=== PATIENT | male | born 1965 | race Caucasian/White ===

== ENCOUNTER 2017-10-04 20:30 | Emergency (ER) | payer OTHER ==
[~2017-10-04] VITALS: Ht 170.1 cm; Wt 81.6 kg
[2017-10-04 21:06] LABS: BILIRUBIN NEGATIVE (NEGATIVE); BLOOD 1+ (NEGATIVE); CLARITY SL CLOUDY (CLEAR); COLOR YELLOW (YELLOW); GLUCOSE 3+ (NEGATIVE); KETONE 1+ (NEGATIVE); LEUKO ESTERASE NEGATIVE (NEGATIVE); NITRITE NEGATIVE (NEGATIVE)
[2017-10-04 21:11] LABS: BACTERIA TRACE
[2017-10-04 21:12] LABS: EPITHELIAL CELLS 0-2; MUCOUS TRACE; RBC 31-40 rbc/hpf (0-2)
[2017-10-04 21:17] LABS: HEMOGLOBIN 11.5 g/dl (14.0-18.0); MEAN CELL VOLUME 88.5 fl (80.0-94.0); MEAN CORPUSCULAR HGB 29.9 pg (27.0-31.0); MEAN CORPUSCULAR HGB CONC 33.8 g/dl (33.0-37.0); MEAN PLATELET VOLUME 8.7 fl (9.6-12.3); PLATELET COUNT AUTOMATED 212 10*3/uL (130-400); RED BLOOD COUNT 3.84 10*6/uL (4.50-5.90); RED CELL DISTRI WIDTH 11.9 % (0-14.5); WHITE BLOOD COUNT 7.7 10*3/uL (4.8-10.8)
[2017-10-04 21:30] LABS: ACT PARTIAL THROMBO TIME 22.7 SECONDS (20.8-31.5); INTERNATIONAL NORM RATIO 0.9 (2.0-3.5)
[2017-10-04 21:32] LABS: BUN 14 mg/dl (7-24); CHLORIDE 100 mmol/L (98-107); POTASSIUM 4.2 mmol/L (3.5-5.1); SGOT/AST 14 IU/L (3-35); SGPT/ALT 37 U/L (12-78); SODIUM 135 mmol/L (136-145); TOTAL PROTEIN 7.3 gm/dL (6.4-8.2)
[2017-10-04 21:33] LABS: ALKALINE PHOSPHATASE 145 U/L (45-117)
[2017-10-04 21:39] LABS: ATYPICAL LYMPHS 3 % (0-0); BASOPHILS 1 % (0-1); TOTAL CELLS COUNTED 100 #CELLS
[2017-10-04 21:40] LABS: PLATELET SUFFICIENCY NORMAL (NORMAL)
[2017-10-04] MEDS ORDERED: Motrin,Rufen800 MG PO (22:50)
[2017-10-04] MEDS ORDERED: DOXYCYCLINE HY100 M3 PO (22:50)
[2017-10-08 12:07] LABS: IGG P18 AB Absent (.); IGG P23 AB Absent (.); IGG P28 AB Absent (.); IGG P30 AB Absent (.); IGG P39 AB Absent (.); IGG P41 AB Present (.); IGG P45 AB Absent (.); IGG P58 AB Absent (.); IGG P63 AB Present (.); IGG P66 AB Absent (.); IGM P23 AB Present (.); IGM P39 AB Present (.); IGM P41 AB Present (.); LYME IGG WB INTERPRETATION Negative (.); LYME IGM WB INTERPRETATION Positive (.)
[2017-10-08 12:17] LABS: LYME REFLEX CHARGE CHG
== END 2017-10-04 22:47 | disposition home or self-care (01) ==
LOC: ED 20:30
PROVIDERS: Emergency Medicine Emergency Medical Services
DX: R50.9 Fever, unspecified (principal); M25.50 Pain in unspecified joint

== ENCOUNTER 2020-04-08 10:51 | Inpatient (IN) | payer OTHER ==
[2020-04-08] VITALS (8 sets, daily range): BP systolic 105–176; BP diastolic 62–96
[~2020-04-08] VITALS: Ht 172.7 cm; Wt 84.5 kg
[~2020-04-08 10:51] MED LIST: DOXYCYCLINE HY100 M3 PO; Motrin,Rufen800 MG PO
[2020-04-08 11:31] LABS: BASO % 0.3 % (0.0-1.0); EOS # 0.1 10*3/uL (0.0-0.4); EOS % 1.8 % (1.0-4.0); HEMATOCRIT 39.5 % (42.0-52.0); LYMPH # 1.3 10*3/uL (1.3-4.4); LYMPH % 19.5 % (27.0-41.0); MEAN CELL VOLUME 88.4 fl (80.0-94.0); MEAN CORPUSCULAR HGB 29.3 pg (27.0-31.0); MEAN CORPUSCULAR HGB CONC 33.2 g/dl (33.0-37.0); MEAN PLATELET VOLUME 8.9 fl (9.6-12.3); MONO # 0.5 10*3/uL (0.1-1.0); NEUT # 4.8 10*3/uL (2.3-7.9); NEUT % 71.3 % (47.0-73.0); PLATELET COUNT AUTOMATED 218 10*3/uL (130-400); RED BLOOD COUNT 4.47 10*6/uL (4.50-5.90); RED CELL DISTRI WIDTH 11.7 % (0-14.5); WHITE BLOOD COUNT 6.7 10*3/uL (4.8-10.8)
[2020-04-08 11:47] LABS: ALBUMIN 3.5 gm/dl (3.1-4.5); ALKALINE PHOSPHATASE 80 U/L (45-117); BUN 29 mg/dl (7-24); CHLORIDE 104 mmol/L (98-107); CREATININE 1.32 mg/dL (0.70-1.30); POTASSIUM 5.9 mmol/L (3.5-5.1); SGOT/AST 18 IU/L (3-35); SGPT/ALT 25 U/L (12-78); SODIUM 136 mmol/L (136-145); TOTAL PROTEIN 7.6 gm/dL (6.4-8.2)
--- NOTE | 2020-04-08 12:24 | NUR ---
PATIENT RESTING AT THIS TIME. IN POSITION OF COMFORT. CALL LIGHT IN REACH. WATCHING TELEVISION. NO COMPLAINTS AT THIS TIME. WILL CONTINUE TO MONITOR.
--- NOTE | 2020-04-08 12:43 | NUR ---
PATIENT RESTING AT THIS TIME. CALL LIGHT IN REACH. WILL CONTINUE TO MONITOR PT.
--- NOTE | 2020-04-08 13:21 | NUR ---
RESIDENT IN ROOM WITH PATIENT AT THIS TIME.
--- NOTE | 2020-04-08 13:54 | NUR ---
PATIENT RESTING AT THIS TIME. IN POSITION OF COMFORT. CALL LIGHT IN REACH. WILL CONTINUE TO MONITOR PT. NO COMPLAINTS AT THIS TIME.
--- NOTE | 2020-04-08 14:12 | NUR ---
THE [facility] WAS CONTACTED REGARDING THE PATIENT AND AN UPDATED MEDICATION LIST. [facility] STATES THAT THEY WILL FAX IT TO THE HOSPITAL.
--- NOTE | 2020-04-08 15:28 | NUR ---
A CONSULT WAS MADE TO DR AMBER ROLDAN AT [phone]. I SPOKE TO ERMA AND SHE STATES THAT SHE IS GOING TO GET AHOLD OF DR ROLDAN.
[2020-04-08] MEDS ORDERED: CARVEDILOL3.125 MG PO (15:58)
[2020-04-08] MEDS ORDERED: CLOPIDOGREL75 MG PO (15:58)
[2020-04-08] MEDS ORDERED: GLIPIZIDE5 MG PO (15:59)
[2020-04-08] MEDS ORDERED: LOSARTAN POTASS50 M1 PO (16:00)
[2020-04-08] MEDS ORDERED: OMEPRAZOLE20 M2 PO (16:01)
[2020-04-08] MEDS ORDERED: ALDACTONE25 M1 PO (16:01)
--- NOTE | 2020-04-08 16:52 | NUR ---
THERE HAS BEEN NO RETURNED PHONE CALL FROM DR. ROLDAN
--- NOTE | 2020-04-08 16:54 | NUR ---
DINNER TRABobby CALLED AND ORDERED FOR THE PATIENT.
[2020-04-08 17:33] LABS: BUN 27 mg/dl (7-24); CHLORIDE 108 mmol/L (98-107); CREATININE 1.19 mg/dL (0.70-1.30); SODIUM 138 mmol/L (136-145)
[2020-04-08 17:35] LABS: POTASSIUM 4.6 mmol/L (3.5-5.1)
--- NOTE | 2020-04-08 17:50 | NUR ---
I CONTACTED DR MARQUEZ AND NORIFIED HIM OF THE PATIENTS ELEVATED TROPONIN. DR MARQUEZ IS AWARE.
--- NOTE | 2020-04-08 18:00 | NUR ---
PATIENT IS RESTING AT THIS TIME. PROVIDED A DINNER TRAY.
--- NOTE | 2020-04-08 18:50 | NUR ---
PATIENT AMBULATORY TO BATHROOM.
--- NOTE | 2020-04-08 19:43 | NUR ---
PATIENT RESTING AT THIS TIME. WILL CONTINUE TO MONITOR PT. IN POSITION OF COMFORT.
--- NOTE | 2020-04-08 21:37 | NUR ---
PATIENT RESTING AT THIS TIME. IN POSITION OF COMFORT AT THIS TIME. CALL LIGHT IN REACH. WATCHING TELEVISION. WILL CONTINUE TO MONITOR PT.
--- NOTE | 2020-04-08 23:19 | NUR ---
PATIENT RESTING AT THIS TIME. IN POSITION OF COMFORT. WATCHING TELEVISION. CALL LIGHT IN REACH. WILL CONTINUE TO MONITOR. PATIENT HAS NO COMPLAINTS AT THIS TIME.
[2020-04-09 00:04] VITALS: BP 103/60
--- NOTE | 2020-04-09 01:56 | NUR ---
PATIENT RESTING QUIETLY IN BED AT THIS TIME. RESPIRATIONS EASY, NON-LABORED. RN WILL CONTINUE TO MONITOR.
[2020-04-09 02:17] VITALS: BP 117/61
[2020-04-09 03:40] VITALS: BP 136/87
--- NOTE | 2020-04-09 03:40 | NUR ---
A 54, admitted to 5E, under the services of ROMERO Mckeon DO with a diagnosis of ELEVATED TROPONIN. Chief complaint is CHEST PAIN. Patient arrived via stretcher from ER. Monitor applied. Initial assessment completed. Vital signs taken and recorded. ROMERO MCKEON DO notified of admission to the unit. Orders received. See assessment for past medical history, medications and allergies. Patient and/or family oriented to unit. visitation policy reviewed. Clothing/patient valuable form completed. GABRIELLE NARANJO
--- NOTE | 2020-04-09 04:31 | NUR ---
PATIENT SITUATED IN ROOM. ICE WATER, PHONE COLLEGE ATHLETIC DIRECTOR, AND BOX LUNCH PROVIDED. CALL LIGHT IS WITHIN REACH. WILL CONTINUE TO MONITOR.
--- NOTE | 2020-04-09 06:25 | NUR ---
CHART CHECK COMPLETE.
[2020-04-09 06:58] LABS: BASO % 0.5 % (0.0-1.0); EOS # 0.2 10*3/uL (0.0-0.4); EOS % 3.4 % (1.0-4.0); HEMATOCRIT 35.8 % (42.0-52.0); LYMPH % 33.5 % (27.0-41.0); MEAN CELL VOLUME 90.4 fl (80.0-94.0); MEAN CORPUSCULAR HGB 29.8 pg (27.0-31.0); MEAN PLATELET VOLUME 9.3 fl (9.6-12.3); MONO # 0.6 10*3/uL (0.1-1.0); MONO % 10.1 % (3.0-9.0); NEUT # 3.1 10*3/uL (2.3-7.9); NEUT % 52.2 % (47.0-73.0); PLATELET COUNT AUTOMATED 198 10*3/uL (130-400); RED BLOOD COUNT 3.96 10*6/uL (4.50-5.90); RED CELL DISTRI WIDTH 11.9 % (0-14.5)
[2020-04-09 07:26] LABS: CREATININE 1.48 mg/dL (0.70-1.30); POTASSIUM 4.2 mmol/L (3.5-5.1)
--- NOTE | 2020-04-09 10:59 | NUR ---
Reproduction Order Processor in to talk to patient this a.m. in his Room. Patient states that he Lives with His Significant Other. There are No Steps in the Home Physician: DR SANDRA Pharmacy: [facility], [facility] [place] Home health services: N/A Patient's level of ADLs: INDEPENDENT Patient has working utilities: YES DME: NONE Follow-up physician's appointment after d/c:PER HOSPITALIST NURSE DIRECTOR Does patient want to access PORTAL?: DECLINES Discharge plan at this time is for Pt. to return home with no needs at this time. Pt. is independent and still Drives. VALERIE FARRELL LPN
[2020-04-09 12:00] VITALS: BP 124/69
[2020-04-09 16:00] VITALS: BP 128/66
--- NOTE | 2020-04-09 16:34 | NUR ---
[employer] 54, admitted to , under the services of ROMERO Mckeon DO with a diagnosis of BLE FRACTURES. Chief complaint is PAIN. Patient arrived via bed from ER. Monitor applied. Initial assessment completed. Vital signs taken and recorded. ROMERO MCKEON DO notified of admission to the unit. Orders received. See assessment for past medical history, medications and allergies. Patient and/or family oriented to unit. [facility] visitation policy reviewed. Clothing/patient valuable form completed. HANY DURAN
[2020-04-09 20:00] VITALS: BP 129/64
--- NOTE | 2020-04-09 22:47 | NUR ---
TYLENOL GIVE PER ORDER FOR HEADACHE RATED "2" SEE MAR.
[2020-04-10] VITALS: BP 109/59
[2020-04-10 06:51] LABS: BASO % 0.5 % (0.0-1.0); EOS # 0.2 10*3/uL (0.0-0.4); EOS % 3.6 % (1.0-4.0); HEMATOCRIT 37.6 % (42.0-52.0); LYMPH % 32.8 % (27.0-41.0); MEAN CELL VOLUME 89.7 fl (80.0-94.0); MEAN CORPUSCULAR HGB 29.8 pg (27.0-31.0); MEAN CORPUSCULAR HGB CONC 33.2 g/dl (33.0-37.0); MEAN PLATELET VOLUME 9.1 fl (9.6-12.3); MONO # 0.6 10*3/uL (0.1-1.0); MONO % 10.2 % (3.0-9.0); NEUT # 3.3 10*3/uL (2.3-7.9); NEUT % 52.7 % (47.0-73.0); PLATELET COUNT AUTOMATED 214 10*3/uL (130-400); RED BLOOD COUNT 4.19 10*6/uL (4.50-5.90); RED CELL DISTRI WIDTH 11.9 % (0-14.5); WHITE BLOOD COUNT 6.2 10*3/uL (4.8-10.8)
[2020-04-10 07:04] LABS: BUN 29 mg/dl (7-24); CHLORIDE 105 mmol/L (98-107); POTASSIUM 4.4 mmol/L (3.5-5.1); SODIUM 136 mmol/L (136-145)
[2020-04-10 08:00] VITALS: BP 141/86
--- NOTE | 2020-04-10 11:11 | NUR ---
INFORMED SIGNED CONSENT OBTAINED FOR LEXISCAN STRESS TEST WITH DR ROLDAN. RESTING EKG NSR WITH PVC HR 75 BP 108/70. PULSE OX 93% LUNGS CLEAR. PT COMPLETED ONE MINUTE OF A LEXISCAN STRESS TEST WITH PT RECEIVING LEXISCAN 0.4MG IV OVER 10 SECONDS. PT C/O DIZZINESS AND NAUSEA WITH INJECTION, THAT RESOLVED. LAST RECOVERY HR OF 84 BP 102/66. PT IN STABLE CONDITION, AWAITING NUCLEAR IMAGES.
[2020-04-10 12:00] VITALS: BP 147/84
[2020-04-10] MEDS ORDERED: FUROSEMIDE40 MG PO (14:26)
[2020-04-10] MEDS ORDERED: IMDUR SA30 MG PO (14:26)
[2020-04-10] MEDS ORDERED: ATORVASTATIN CA40 M1 PO ×2 (14:26)
[2020-04-10] MEDS ORDERED: ASPIRIN ADULT L81 M2 PO (14:26)
--- NOTE | 2020-04-10 16:44 | NUR ---
PT HAS BEEN DISCHARGED AT THIS TIME. HE WILL BE LEAVING WITH A FAMILY FRIEND.
== END 2020-04-10 20:59 | disposition home or self-care (01) | DRG 280 ==
LOC: ED 10:51 → EDHOLD 12:59 → 5E 04-09 03:19
PROVIDERS: Emergency Medicine; Hospitalist; Student in an Organized Health Care Education/Training Program; ADMIT Family Medicine; ATTEND Family Medicine
PROC: 4A02XM4 Measurement of Cardiac Total Activity, External Approach (ICD-10-PCS; principal; 2020-04-10)
PROC: 3E073KZ Introduction of Other Diagnostic Substance into Coronary Artery, Percutaneous Approach (ICD-10-PCS; 2020-04-10)
DX: I21.4 Non-ST elevation (NSTEMI) myocardial infarction (principal); N17.0 Acute kidney failure with tubular necrosis; I50.22 Chronic systolic (congestive) heart failure; E87.5 Hyperkalemia; E11.65 Type 2 diabetes mellitus with hyperglycemia; I25.10 Atherosclerotic heart disease of native coronary artery without angina pectoris; E78.5 Hyperlipidemia, unspecified; E66.3 Overweight; D64.9 Anemia, unspecified; I25.5 Ischemic cardiomyopathy; I11.0 Hypertensive heart disease with heart failure; I25.2 Old myocardial infarction; Z95.5 Presence of coronary angioplasty implant and graft; Z87.891 Personal history of nicotine dependence; Z79.899 Other long term (current) drug therapy; Z68.29 Body mass index [BMI] 29.0-29.9, adult

== ENCOUNTER 2020-04-13 05:30 | Inpatient (IN) | payer OTHER ==
[2020-04-13] VITALS (7 sets, daily range): BP systolic 131–195; BP diastolic 77–108
[~2020-04-13] VITALS: Ht 170.1 cm; Wt 81.7 kg
[~2020-04-13 05:30] MED LIST changes: +ALDACTONE25 M1 PO; +ASPIRIN ADULT L81 M2 PO; +ATORVASTATIN CA40 M1 PO; +CARVEDILOL3.125 MG PO; +CLOPIDOGREL75 MG PO; +FUROSEMIDE40 MG PO; +GLIPIZIDE5 MG PO; +IMDUR SA30 MG PO; +LOSARTAN POTASS50 M1 PO; +OMEPRAZOLE20 M2 PO
[2020-04-13 06:03] LABS: BASO % 0.4 % (0.0-1.0); EOS # 0.2 10*3/uL (0.0-0.4); EOS % 2.3 % (1.0-4.0); HEMATOCRIT 38.1 % (42.0-52.0); LYMPH # 1.5 10*3/uL (1.3-4.4); LYMPH % 19.6 % (27.0-41.0); MEAN CORPUSCULAR HGB 29.4 pg (27.0-31.0); MEAN CORPUSCULAR HGB CONC 33.1 g/dl (33.0-37.0); MEAN PLATELET VOLUME 9.1 fl (9.6-12.3); MONO # 0.7 10*3/uL (0.1-1.0); MONO % 8.6 % (3.0-9.0); NEUT # 5.3 10*3/uL (2.3-7.9); NEUT % 68.8 % (47.0-73.0); PLATELET COUNT AUTOMATED 230 10*3/uL (130-400); RED BLOOD COUNT 4.28 10*6/uL (4.50-5.90); RED CELL DISTRI WIDTH 11.9 % (0-14.5); WHITE BLOOD COUNT 7.7 10*3/uL (4.8-10.8)
[2020-04-13 06:13] LABS: ALBUMIN 3.7 gm/dl (3.1-4.5); ALKALINE PHOSPHATASE 74 U/L (45-117); BUN 36 mg/dl (7-24); CHLORIDE 106 mmol/L (98-107); CREATININE 1.33 mg/dL (0.70-1.30); POTASSIUM 4.4 mmol/L (3.5-5.1); SGOT/AST 28 IU/L (3-35); SGPT/ALT 45 U/L (12-78); SODIUM 136 mmol/L (136-145); TOTAL PROTEIN 7.6 gm/dL (6.4-8.2)
[2020-04-13 06:26] LABS: TROPONIN I 0.133 ng/ml (<0.045)
[2020-04-13 06:49] LABS: CKMB 3.3 ng/ml (0.5-3.6)
--- NOTE | 2020-04-13 07:09 | NUR ---
REPORT RECEIVED FROM EMILIANO ARIZA RN
[2020-04-13 11:31] LABS: ACT PARTIAL THROMBO TIME 25.7 SECONDS (20.0-32.1); INTERNATIONAL NORM RATIO 0.9 (2.0-3.5)
--- NOTE | 2020-04-13 17:11 | NUR ---
ORDERED PATIENT DINNER TRAY.
[2020-04-14 06:40] LABS: BASO % 0.4 % (0.0-1.0); EOS # 0.2 10*3/uL (0.0-0.4); HEMATOCRIT 35.4 % (42.0-52.0); LYMPH % 34.3 % (27.0-41.0); MEAN CELL VOLUME 90.3 fl (80.0-94.0); MEAN CORPUSCULAR HGB 29.3 pg (27.0-31.0); MEAN CORPUSCULAR HGB CONC 32.5 g/dl (33.0-37.0); MEAN PLATELET VOLUME 9.5 fl (9.6-12.3); MONO # 0.7 10*3/uL (0.1-1.0); NEUT # 2.9 10*3/uL (2.3-7.9); NEUT % 50.1 % (47.0-73.0); PLATELET COUNT AUTOMATED 221 10*3/uL (130-400); RED BLOOD COUNT 3.92 10*6/uL (4.50-5.90); RED CELL DISTRI WIDTH 12.1 % (0-14.5); WHITE BLOOD COUNT 5.7 10*3/uL (4.8-10.8)
[2020-04-14 06:41] VITALS: BP 121/65
[2020-04-14 07:00] LABS: ALBUMIN 3.3 gm/dl (3.1-4.5); POTASSIUM 3.9 mmol/L (3.5-5.1); TOTAL PROTEIN 6.4 gm/dL (6.4-8.2)
[2020-04-14 07:09] LABS: ACT PARTIAL THROMBO TIME 25.4 SECONDS (20.0-32.1)
--- NOTE | 2020-04-14 12:45 | NUR ---
A 54, admitted to 5E, under the services of REGULO Hoang DO with a diagnosis of NSTEMI. Chief complaint is CHEST PAIN. Patient arrived via wheel chair from ER. Monitor applied. Initial assessment completed. Vital signs taken and recorded. REGULO HOANG DO notified of admission to the unit. Orders received. See assessment for past medical history, medications and allergies. Patient and/or family oriented to unit. [address] visitation policy reviewed. Clothing/patient valuable form completed. SANTOS HERRERA
[2020-04-14 13:00] VITALS: BP 134/74
[2020-04-14 16:00] VITALS: BP 104/64
[2020-04-14 20:00] VITALS: BP 120/75
--- NOTE | 2020-04-14 22:10 | NUR ---
RESTORIL GIVEN PER ORDER FOR COMPLAINTS OF INSOMNIA. WILL MONITOR.
--- NOTE | 2020-04-14 23:10 | NUR ---
RESTORIL EFFECTIVE, PATIENT ASLEEP AT THIS TIME.
[2020-04-15] VITALS: BP 114/70
[2020-04-15 06:30] LABS: BASO % 0.5 % (0.0-1.0); EOS # 0.2 10*3/uL (0.0-0.4); EOS % 3.4 % (1.0-4.0); HEMATOCRIT 36.8 % (42.0-52.0); LYMPH # 2.2 10*3/uL (1.3-4.4); LYMPH % 35.7 % (27.0-41.0); MEAN CELL VOLUME 89.3 fl (80.0-94.0); MEAN CORPUSCULAR HGB 29.4 pg (27.0-31.0); MEAN CORPUSCULAR HGB CONC 32.9 g/dl (33.0-37.0); MEAN PLATELET VOLUME 9.5 fl (9.6-12.3); MONO # 0.6 10*3/uL (0.1-1.0); MONO % 9.3 % (3.0-9.0); NEUT # 3.2 10*3/uL (2.3-7.9); NEUT % 50.9 % (47.0-73.0); PLATELET COUNT AUTOMATED 229 10*3/uL (130-400); RED BLOOD COUNT 4.12 10*6/uL (4.50-5.90); RED CELL DISTRI WIDTH 11.9 % (0-14.5); WHITE BLOOD COUNT 6.2 10*3/uL (4.8-10.8)
[2020-04-15 06:57] LABS: ALBUMIN 3.2 gm/dl (3.1-4.5); CREATININE 1.5 mg/dL (0.70-1.30); TOTAL PROTEIN 6.7 gm/dL (6.4-8.2)
[2020-04-15 06:58] LABS: POTASSIUM 4.6 mmol/L (3.5-5.1)
[2020-04-15 08:00] VITALS: BP 127/54
--- NOTE | 2020-04-15 08:30 | NUR ---
Patient resting quietly with no c/o discomfort. Respirations easy and regular. Vital signs stable. No overt distress. NITISH MAZARIEGOS R
[2020-04-15] MEDS ORDERED: ATORVASTATIN CA40 M1 PO (10:37)
[2020-04-15 12:00] VITALS: BP 107/59
[2020-04-15 16:00] VITALS: BP 135/77
--- NOTE | 2020-04-15 16:26 | NUR ---
Pt. to Discharge to [place] for Heart Cath. No Home Needs at this time. [facility] [place] Pt. is 30 Day Readmit for Same Diagnosis.
--- NOTE | 2020-04-15 17:50 | NUR ---
Patient resting quietly with no c/o discomfort. Respirations easy and regular. Vital signs stable. No overt distress. NITISH MAZARIEGOS R
[2020-04-15 20:00] VITALS: BP 121/72
--- NOTE | 2020-04-15 22:05 | NUR ---
MEDICATED WITH RESTORIL PER PRN ORDER FOR C/O INSOMNIA.
[2020-04-16] VITALS: BP 121/67
--- NOTE | 2020-04-16 01:30 | NUR ---
PT WOKE UP SAYING HE HAD TREMORS AND NOT FEELING RIGHT. VSS STABLE, SKIN WARM AND DRY. PT SAYS HEART FEELS LIKE POUNDING HARD. HR 70'S AND REGULAR. DR HERNDON CALLED AND ORDER FOR ATIVAN 0.5MG PO X1 NOW.
--- NOTE | 2020-04-16 02:30 | NUR ---
CHECKED ON PT. PT STATES HE STILL FEELS HIS HEART POUNDING BUT NOT BAD AND IS FEELING BETTER. VSS GOOD, HRR AND IN THE 60-70'S. SKIN WARM AND DRY. RESP NONLABORED. NO ACUTE DISTRESS NOTED.
[2020-04-16 07:08] LABS: BUN 38 mg/dl (7-24); CHLORIDE 105 mmol/L (98-107); POTASSIUM 4.6 mmol/L (3.5-5.1); SODIUM 136 mmol/L (136-145)
--- NOTE | 2020-04-16 07:30 | NUR ---
Patient resting quietly with no c/o discomfort. Respirations easy and regular. Denies chest pain at this time. Vital signs stable. No overt distress. NITISH MAZARIEGOS R
--- NOTE | 2020-04-16 07:41 | NUR ---
REPORT CALLED TO LABORER BRUSH CLEARING.
--- NOTE | 2020-04-16 07:46 | NUR ---
MEDS GIVEN PER ORDERS FROM HUMAN RELATIONS TEACHER
--- NOTE | 2020-04-16 08:38 | NUR ---
Discharge instructions reviewed with patient/family. Patient receptive and verbalizes understanding. Follow-up care arranged. Written instructions given to patient/family. NITISH MAZARIEGOS
== END 2020-04-16 08:35 | disposition other institution (70) | DRG 280 ==
LOC: ED 05:30 → EDHOLD 10:36 → 5E 04-14 12:12
PROVIDERS: Emergency Medicine; Internal Medicine; Internal Medicine Cardiovascular Disease; ADMIT Internal Medicine; ATTEND Internal Medicine
DX: I21.4 Non-ST elevation (NSTEMI) myocardial infarction (principal); N17.0 Acute kidney failure with tubular necrosis; I16.1 Hypertensive emergency; I50.22 Chronic systolic (congestive) heart failure; D64.9 Anemia, unspecified; E11.65 Type 2 diabetes mellitus with hyperglycemia; E78.5 Hyperlipidemia, unspecified; E66.3 Overweight; E83.41 Hypermagnesemia; F41.9 Anxiety disorder, unspecified; I25.10 Atherosclerotic heart disease of native coronary artery without angina pectoris; Z20.828 Contact with and (suspected) exposure to other viral communicable diseases; E83.39 Other disorders of phosphorus metabolism; I11.0 Hypertensive heart disease with heart failure; I25.5 Ischemic cardiomyopathy; Z87.891 Personal history of nicotine dependence; Z95.5 Presence of coronary angioplasty implant and graft; Z83.3 Family history of diabetes mellitus; Z80.42 Family history of malignant neoplasm of prostate; Z79.82 Long term (current) use of aspirin; Z79.899 Other long term (current) drug therapy; Z79.02 Long term (current) use of antithrombotics/antiplatelets; Z68.28 Body mass index [BMI] 28.0-28.9, adult

== ENCOUNTER 2020-09-25 05:09 | Emergency (ER) | payer OTHER ==
[~2020-09-25] VITALS: Ht 167.6 cm; Wt 111.1 kg
[2020-09-25 05:52] LABS: BASO % 0.5 % (0.0-1.0); EOS # 0.3 10*3/uL (0.0-0.4); EOS % 3.6 % (1.0-4.0); HEMATOCRIT 35.6 % (42.0-52.0); LYMPH # 1.5 10*3/uL (1.3-4.4); MEAN CORPUSCULAR HGB 30.7 pg (27.0-31.0); MEAN CORPUSCULAR HGB CONC 33.7 g/dl (33.0-37.0); MEAN PLATELET VOLUME 9.3 fl (9.6-12.3); MONO # 0.7 10*3/uL (0.1-1.0); MONO % 8.2 % (3.0-9.0); NEUT # 6.1 10*3/uL (2.3-7.9); NEUT % 70.5 % (47.0-73.0); PLATELET COUNT AUTOMATED 229 10*3/uL (130-400); RED BLOOD COUNT 3.91 10*6/uL (4.50-5.90); WHITE BLOOD COUNT 8.7 10*3/uL (4.8-10.8)
[2020-09-25 05:53] LABS: ALBUMIN 3.5 gm/dl (3.1-4.5); ALKALINE PHOSPHATASE 71 U/L (45-117); BUN 33 mg/dl (7-24); CHLORIDE 105 mmol/L (98-107); CREATININE 1.66 mg/dL (0.70-1.30); POTASSIUM 4.5 mmol/L (3.5-5.1); SGOT/AST 15 IU/L (3-35); SGPT/ALT 24 U/L (12-78); SODIUM 135 mmol/L (136-145); TOTAL PROTEIN 7.5 gm/dL (6.4-8.2)
[2020-09-25 05:57] LABS: TROPONIN I < 0.015 ng/ml (<0.045)
[2020-09-25] MEDS ORDERED: PRALUENT P75 MG/1 ML SQ (05:59)
== END 2020-09-25 12:23 | disposition home or self-care (01) ==
LOC: ED 05:09
PROVIDERS: Internal Medicine
DX: R07.89 Other chest pain (principal); Z79.899 Other long term (current) drug therapy; Z95.818 Presence of other cardiac implants and grafts

== ENCOUNTER 2021-03-14 05:27 | Emergency (ER) | payer OTHER ==
[~2021-03-14] VITALS: Ht 170.1 cm; Wt 85.7 kg
[~2021-03-14 05:27] MED LIST changes: +PRALUENT P75 MG/1 ML SQ
[2021-03-14] MEDS ORDERED: PREDNISONE20 M1 PO (06:08)
== END 2021-03-14 06:29 | disposition home or self-care (01) ==
LOC: ED 05:27
DX: J12.9 Viral pneumonia, unspecified (principal); Z79.899 Other long term (current) drug therapy; Z87.891 Personal history of nicotine dependence

== ENCOUNTER 2021-11-17 01:34 | Emergency (ER) | payer OTHER ==
[~2021-11-17] VITALS: Ht 177.8 cm; Wt 90.7 kg
[~2021-11-17 01:34] MED LIST changes: +PREDNISONE20 M1 PO
[2021-11-17] MEDS ORDERED: CLINDAMYCIN HC300 MG PO (01:55)
[2021-11-17] MEDS ORDERED: HYDROCODONE-AC1 EAC1 PO (01:55)
== END 2021-11-17 02:03 | disposition home or self-care (01) ==
LOC: ED 01:34
DX: S02.5XXA Fracture of tooth (traumatic), initial encounter for closed fracture (principal); Z79.899 Other long term (current) drug therapy; Z95.5 Presence of coronary angioplasty implant and graft; Z87.891 Personal history of nicotine dependence; X58.XXXA Exposure to other specified factors, initial encounter; Y93.89 Activity, other specified; Y92.89 Other specified places as the place of occurrence of the external cause; Y99.8 Other external cause status

== ENCOUNTER 2022-04-11 13:20 | Emergency (ER) | payer OTHER ==
[~2022-04-11] VITALS: Ht 170.1 cm; Wt 77.6 kg
[~2022-04-11 13:20] MED LIST changes: +CLINDAMYCIN HC300 MG PO; +HYDROCODONE-AC1 EAC1 PO
[2022-04-11 14:08] LABS: BASO # 0.1 10*3/uL (0.0-0.1); BASO % 0.9 % (0.0-1.0); EOS # 0.2 10*3/uL (0.0-0.4); EOS % 4.2 % (1.0-4.0); HEMATOCRIT 42.1 % (42.0-52.0); LYMPH # 1.1 10*3/uL (1.3-4.4); LYMPH % 19.3 % (27.0-41.0); MEAN CELL VOLUME 88.1 fl (80.0-94.0); MEAN CORPUSCULAR HGB 29.9 pg (27.0-31.0); MEAN PLATELET VOLUME 9.2 fl (9.6-12.3); MONO # 0.4 10*3/uL (0.1-1.0); MONO % 6.1 % (3.0-9.0); NEUT % 69.3 % (47.0-73.0); PLATELET COUNT AUTOMATED 251 10*3/uL (130-400); RED BLOOD COUNT 4.78 10*6/uL (4.50-5.90); RED CELL DISTRI WIDTH 11.8 % (0-14.5); WHITE BLOOD COUNT 5.8 10*3/uL (4.8-10.8)
[2022-04-11 14:24] LABS: ALKALINE PHOSPHATASE 96 U/L (46-116); BUN 23 mg/dl (9-23); CHLORIDE 99 mmol/L (98-107); CREATININE 1.14 mg/dL (0.70-1.30); INTERNATIONAL NORM RATIO 0.9 (2.0-3.5); LIPASE 42 U/L (12-53); POTASSIUM 4.4 mmol/L (3.4-5.1); SGPT/ALT 22 U/L (10-49); SODIUM 135 mmol/L (136-145); TOTAL PROTEIN 7.1 gm/dL (6.0-8.0)
[2022-04-11] MEDS ORDERED: ENTRESTO 24 MG1 EACH PO (14:30)
== END 2022-04-11 16:13 | disposition home or self-care (01) ==
LOC: ED 13:20
PROVIDERS: Emergency Medicine
DX: I10 Essential (primary) hypertension (principal); F41.9 Anxiety disorder, unspecified; Z79.899 Other long term (current) drug therapy; Z87.891 Personal history of nicotine dependence

== ENCOUNTER 2022-04-30 20:58 | Emergency (ER) | payer OTHER ==
[~2022-04-30] VITALS: Ht 170.1 cm; Wt 77.1 kg
[~2022-04-30 20:58] MED LIST changes: +ENTRESTO 24 MG1 EACH PO
[2022-04-30] MEDS ORDERED: VIBRAMYCIN100 MG PO (22:11)
== END 2022-04-30 22:15 | disposition home or self-care (01) ==
LOC: ED 20:58
DX: H66.91 Otitis media, unspecified, right ear (principal); Z79.899 Other long term (current) drug therapy; Z87.891 Personal history of nicotine dependence

== ENCOUNTER 2022-07-23 07:49 | Emergency (ER) | payer OTHER ==
[~2022-07-23] VITALS: Ht 172.7 cm; Wt 88.3 kg
[~2022-07-23 07:49] MED LIST changes: +VIBRAMYCIN100 MG PO
[2022-07-23 08:22] LABS: BASO # 0.1 10*3/uL (0.0-0.1); BASO % 0.9 % (0.0-1.0); EOS # 0.5 10*3/uL (0.0-0.4); EOS % 8.8 % (1.0-4.0); HEMATOCRIT 35.6 % (42.0-52.0); LYMPH # 1.7 10*3/uL (1.3-4.4); LYMPH % 30.8 % (27.0-41.0); MEAN CELL VOLUME 93.2 fl (80.0-94.0); MEAN CORPUSCULAR HGB 30.4 pg (27.0-31.0); MEAN CORPUSCULAR HGB CONC 32.6 g/dl (33.0-37.0); MEAN PLATELET VOLUME 9.5 fl (9.6-12.3); MONO # 0.5 10*3/uL (0.1-1.0); MONO % 8.1 % (3.0-9.0); NEUT # 2.9 10*3/uL (2.3-7.9); NEUT % 51.2 % (47.0-73.0); PLATELET COUNT AUTOMATED 210 10*3/uL (130-400); RED BLOOD COUNT 3.82 10*6/uL (4.50-5.90); RED CELL DISTRI WIDTH 12.2 % (0-14.5); WHITE BLOOD COUNT 5.7 10*3/uL (4.8-10.8)
[2022-07-23 08:38] LABS: ACT PARTIAL THROMBO TIME 27.5 SECONDS (20.0-32.1)
[2022-07-23 08:44] LABS: ALKALINE PHOSPHATASE 73 U/L (46-116); BUN 35 mg/dl (9-23); CHLORIDE 105 mmol/L (98-107); POTASSIUM 4.4 mmol/L (3.4-5.1); SGPT/ALT 22 U/L (10-49); TOTAL PROTEIN 6.7 gm/dL (6.0-8.0)
== END 2022-07-23 16:26 | disposition short-term general hospital (02) ==
LOC: ED 07:49
PROVIDERS: Student in an Organized Health Care Education/Training Program
DX: I21.4 Non-ST elevation (NSTEMI) myocardial infarction (principal); I11.0 Hypertensive heart disease with heart failure; I50.9 Heart failure, unspecified; E11.9 Type 2 diabetes mellitus without complications; I25.2 Old myocardial infarction; Z79.899 Other long term (current) drug therapy; Z87.891 Personal history of nicotine dependence

== ENCOUNTER 2022-09-10 15:27 | Emergency (ER) | payer OTHER ==
[~2022-09-10] VITALS: Ht 170.1 cm; Wt 81.6 kg
[2022-09-10 16:29] LABS: BASO % 0.7 % (0.0-1.0); EOS # 0.3 10*3/uL (0.0-0.4); EOS % 4.6 % (1.0-4.0); HEMATOCRIT 38.8 % (42.0-52.0); LYMPH # 1.6 10*3/uL (1.3-4.4); LYMPH % 27.2 % (27.0-41.0); MEAN CELL VOLUME 89.4 fl (80.0-94.0); MEAN CORPUSCULAR HGB 28.6 pg (27.0-31.0); MEAN PLATELET VOLUME 8.5 fl (9.6-12.3); MONO # 0.4 10*3/uL (0.1-1.0); MONO % 7.4 % (3.0-9.0); NEUT # 3.4 10*3/uL (2.3-7.9); NEUT % 59.9 % (47.0-73.0); PLATELET COUNT AUTOMATED 241 10*3/uL (130-400); RED BLOOD COUNT 4.34 10*6/uL (4.50-5.90); RED CELL DISTRI WIDTH 13.7 % (0-14.5); WHITE BLOOD COUNT 5.7 10*3/uL (4.8-10.8)
[2022-09-10 16:49] LABS: BUN 20 mg/dl (9-23); CHLORIDE 105 mmol/L (98-107); POTASSIUM 4.3 mmol/L (3.4-5.1)
[2022-09-10] MEDS ORDERED: SEPTDS PO (18:38)
== END 2022-09-10 18:59 | disposition home or self-care (01) ==
LOC: ED 15:27
PROVIDERS: Emergency Medicine
DX: T81.509A Unspecified complication of foreign body accidentally left in body following unspecified procedure, initial encounter (principal); E11.9 Type 2 diabetes mellitus without complications; I50.9 Heart failure, unspecified; I11.0 Hypertensive heart disease with heart failure; I25.2 Old myocardial infarction; Z88.8 Allergy status to other drugs, medicaments and biological substances; Z98.890 Other specified postprocedural states; Z87.891 Personal history of nicotine dependence

== ENCOUNTER 2022-11-15 06:11 | Emergency (ER) | payer OTHER ==
[~2022-11-15] VITALS: Ht 170.1 cm; Wt 81.6 kg
[~2022-11-15 06:11] MED LIST changes: +SEPTDS PO
[2022-11-15 06:43] LABS: BASO # 0.1 10*3/uL (0.0-0.1); BASO % 0.5 % (0.0-1.0); EOS # 0.5 10*3/uL (0.0-0.4); EOS % 4.3 % (1.0-4.0); LYMPH # 0.9 10*3/uL (1.3-4.4); LYMPH % 8.8 % (27.0-41.0); MEAN CELL VOLUME 91.3 fl (80.0-94.0); MEAN CORPUSCULAR HGB 29.3 pg (27.0-31.0); MEAN CORPUSCULAR HGB CONC 32.1 g/dl (33.0-37.0); MEAN PLATELET VOLUME 8.7 fl (9.6-12.3); MONO # 0.9 10*3/uL (0.1-1.0); MONO % 8.4 % (3.0-9.0); NEUT # 8.3 10*3/uL (2.3-7.9); NEUT % 77.7 % (47.0-73.0); PLATELET COUNT AUTOMATED 201 10*3/uL (130-400); RED CELL DISTRI WIDTH 14.7 % (0-14.5); WHITE BLOOD COUNT 10.6 10*3/uL (4.8-10.8)
[2022-11-15 07:09] LABS: POTASSIUM 4.2 mmol/L (3.4-5.1); TOTAL PROTEIN 7.2 gm/dL (6.0-8.0)
[2022-11-15] MEDS ORDERED: ONDANSETRON4 MG SL (07:32)
== END 2022-11-15 07:39 | disposition home or self-care (01) ==
LOC: ED 06:11
PROVIDERS: Internal Medicine
DX: A08.4 Viral intestinal infection, unspecified (principal); E11.9 Type 2 diabetes mellitus without complications; I11.0 Hypertensive heart disease with heart failure; I50.9 Heart failure, unspecified; Z88.8 Allergy status to other drugs, medicaments and biological substances; Z95.5 Presence of coronary angioplasty implant and graft; Z87.891 Personal history of nicotine dependence

== ENCOUNTER 2023-02-19 14:44 | Emergency (ER) | payer OTHER ==
[~2023-02-19] VITALS: Ht 170.1 cm; Wt 81.6 kg
[~2023-02-19 14:44] MED LIST changes: +ONDANSETRON4 MG SL
[2023-02-19 16:34] LABS: BASO # 0.1 10*3/uL (0.0-0.1); BASO % 0.8 % (0.0-1.0); EOS # 0.4 10*3/uL (0.0-0.4); EOS % 5.8 % (1.0-4.0); HEMATOCRIT 41.3 % (42.0-52.0); LYMPH # 1.6 10*3/uL (1.3-4.4); LYMPH % 24.9 % (27.0-41.0); MEAN CORPUSCULAR HGB 30.4 pg (27.0-31.0); MEAN CORPUSCULAR HGB CONC 33.4 g/dl (33.0-37.0); MEAN PLATELET VOLUME 8.8 fl (9.6-12.3); MONO # 0.5 10*3/uL (0.1-1.0); MONO % 7.8 % (3.0-9.0); NEUT % 60.5 % (47.0-73.0); PLATELET COUNT AUTOMATED 236 10*3/uL (130-400); RED BLOOD COUNT 4.54 10*6/uL (4.50-5.90); RED CELL DISTRI WIDTH 12.3 % (0-14.5); WHITE BLOOD COUNT 6.5 10*3/uL (4.8-10.8)
[2023-02-19 16:57] LABS: ALKALINE PHOSPHATASE 81 U/L (46-116); BUN 24 mg/dl (9-23); CHLORIDE 105 mmol/L (98-107); LIPASE 52 U/L (12-53); POTASSIUM 4.8 mmol/L (3.4-5.1); SGPT/ALT 18 U/L (5-49); TOTAL PROTEIN 7.1 gm/dL (6.0-8.0)
[2023-02-19] MEDS ORDERED: CYCLOBENZAPRINE5 M3 PO (17:54)
[2023-02-19] MEDS ORDERED: TRAMADOL HCL50 MG PO (17:54)
== END 2023-02-19 18:08 | disposition home or self-care (01) ==
LOC: ED 14:44
PROVIDERS: Emergency Medicine
DX: S39.011A Strain of muscle, fascia and tendon of abdomen, initial encounter (principal); I11.0 Hypertensive heart disease with heart failure; I50.9 Heart failure, unspecified; E11.9 Type 2 diabetes mellitus without complications; E78.5 Hyperlipidemia, unspecified; I25.10 Atherosclerotic heart disease of native coronary artery without angina pectoris; Z88.8 Allergy status to other drugs, medicaments and biological substances; Z79.899 Other long term (current) drug therapy; Z79.2 Long term (current) use of antibiotics; Z95.5 Presence of coronary angioplasty implant and graft; Z87.891 Personal history of nicotine dependence; X50.1XXA Overexertion from prolonged static or awkward postures, initial encounter; Y93.89 Activity, other specified; Y92.89 Other specified places as the place of occurrence of the external cause; Y99.8 Other external cause status

== ENCOUNTER 2023-08-02 03:53 | Emergency (ER) | payer OTHER ==
[~2023-08-02] VITALS: Ht 170.1 cm; Wt 77.1 kg
[~2023-08-02 03:53] MED LIST changes: +CYCLOBENZAPRINE5 M3 PO; +TRAMADOL HCL50 MG PO
[2023-08-02] MEDS ORDERED: FLUORESCEIN SODIUM 1 MG STRIP OPH ONE (04:15)
[2023-08-02] MEDS ORDERED: Tetracaine Hydrochloride 0.5% 4 ML BOT OPH ONE (04:15)
[2023-08-02] MEDS ORDERED: Dexamethasone/Tobramycin OPHTHALMIC 2.5 ML BOTTLE OPH ONE (04:45)
== END 2023-08-02 05:17 | disposition home or self-care (01) ==
LOC: ED 03:53
DX: S05.01XA Injury of conjunctiva and corneal abrasion without foreign body, right eye, initial encounter (principal); Z88.8 Allergy status to other drugs, medicaments and biological substances; Z79.899 Other long term (current) drug therapy; Z95.5 Presence of coronary angioplasty implant and graft; Z87.891 Personal history of nicotine dependence; X58.XXXA Exposure to other specified factors, initial encounter; Y93.89 Activity, other specified; Y92.89 Other specified places as the place of occurrence of the external cause; Y99.8 Other external cause status

== ENCOUNTER 2024-02-19 20:28 | Emergency (ER) | payer OTHER ==
[~2024-02-19] VITALS: Ht 170.1 cm; Wt 70.3 kg
[2024-02-19] MEDS ORDERED: Labetalol Hydrochloride 20 MG/4 ML SYR IV ONE (20:50)
[2024-02-19 21:09] LABS: BASO # 0.1 10*3/uL (0.0-0.1); BASO % 0.5 % (0.0-1.0); EOS # 0.4 10*3/uL (0.0-0.4); EOS % 3.6 % (1.0-4.0); HEMATOCRIT 38.6 % (42.0-52.0); LYMPH # 1.8 10*3/uL (1.3-4.4); LYMPH % 18.7 % (27.0-41.0); MEAN CELL VOLUME 90.2 fl (80.0-94.0); MEAN CORPUSCULAR HGB 29.7 pg (27.0-31.0); MEAN CORPUSCULAR HGB CONC 32.9 g/dl (33.0-37.0); MEAN PLATELET VOLUME 9.2 fl (9.6-12.3); MONO # 0.7 10*3/uL (0.1-1.0); MONO % 7.4 % (3.0-9.0); NEUT # 6.7 10*3/uL (2.3-7.9); NEUT % 69.6 % (47.0-73.0); PLATELET COUNT AUTOMATED 238 10*3/uL (130-400); RED BLOOD COUNT 4.28 10*6/uL (4.50-5.90); RED CELL DISTRI WIDTH 11.9 % (0-14.5); WHITE BLOOD COUNT 9.7 10*3/uL (4.8-10.8)
[2024-02-19 21:35] LABS: BUN 26 mg/dl (9-23); CHLORIDE 103 mmol/L (98-107); POTASSIUM 4.2 mmol/L (3.4-5.1)
== END 2024-02-20 02:38 | disposition home or self-care (01) ==
LOC: ED 20:28
PROVIDERS: Emergency Medicine
DX: S20.212A Contusion of left front wall of thorax, initial encounter (principal); E11.65 Type 2 diabetes mellitus with hyperglycemia; Z95.5 Presence of coronary angioplasty implant and graft; Z87.891 Personal history of nicotine dependence; W20.8XXA Other cause of strike by thrown, projected or falling object, initial encounter; Y93.89 Activity, other specified; Y92.89 Other specified places as the place of occurrence of the external cause; Y99.8 Other external cause status

== ENCOUNTER 2024-04-14 04:09 | Emergency (ER) | payer OTHER ==
[~2024-04-14] VITALS: Ht 170.1 cm; Wt 70.3 kg
[2024-04-14] MEDS ORDERED: Ondansetron Hydrochloride 4 MG TAB SL ONE (04:25)
[2024-04-14 04:34] LABS: BASO % 0.3 % (0.0-1.0); EOS # 0.4 10*3/uL (0.0-0.4); EOS % 3.3 % (1.0-4.0); HEMATOCRIT 39.6 % (42.0-52.0); MEAN CELL VOLUME 90.2 fl (80.0-94.0); MEAN CORPUSCULAR HGB 30.3 pg (27.0-31.0); MEAN CORPUSCULAR HGB CONC 33.6 g/dl (33.0-37.0); MEAN PLATELET VOLUME 9.1 fl (9.6-12.3); MONO # 0.6 10*3/uL (0.1-1.0); MONO % 5.3 % (3.0-9.0); NEUT # 9.4 10*3/uL (2.3-7.9); NEUT % 84.8 % (47.0-73.0); PLATELET COUNT AUTOMATED 206 10*3/uL (130-400); RED BLOOD COUNT 4.39 10*6/uL (4.50-5.90); RED CELL DISTRI WIDTH 11.9 % (0-14.5); WHITE BLOOD COUNT 11.1 10*3/uL (4.8-10.8)
[2024-04-14 04:56] LABS: ALKALINE PHOSPHATASE 95 U/L (46-116); BUN 29 mg/dl (9-23); CHLORIDE 99 mmol/L (98-107); LIPASE 105 U/L (12-53); POTASSIUM 4.9 mmol/L (3.4-5.1); SGPT/ALT 15 U/L (5-49)
[2024-04-14] MEDS ORDERED: INSULIN REGULAR, HUMAN 1 UNIT/0.01 ML IV ONE (05:20)
[2024-04-14] MEDS ORDERED: SODIUM CHLORIDE 0.9% 1,000 ML IV ONE (05:20)
[2024-04-14] MEDS ORDERED: VIBRAMYCIN100 MG PO (08:05)
== END 2024-04-14 08:20 | disposition home or self-care (01) ==
LOC: ED 04:09
PROVIDERS: Internal Medicine
DX: K52.9 Noninfective gastroenteritis and colitis, unspecified (principal); E11.9 Type 2 diabetes mellitus without complications; I11.0 Hypertensive heart disease with heart failure; I50.9 Heart failure, unspecified; I25.2 Old myocardial infarction; R74.01 Elevation of levels of liver transaminase levels; Z88.8 Allergy status to other drugs, medicaments and biological substances; Z95.1 Presence of aortocoronary bypass graft; Z87.891 Personal history of nicotine dependence

== ENCOUNTER 2024-08-16 03:47 | Emergency (ER) | payer OTHER ==
[~2024-08-16] VITALS: Ht 170.1 cm; Wt 72.6 kg
[2024-08-16] MEDS ORDERED: Doxycycline Hyclate 100 MG CAPSULE PO ONE (04:00)
[2024-08-16] MEDS ORDERED: Acetaminophen/Hydrocodone 5 MG/325 MG TABLET PO ONE (04:00)
[2024-08-16] MEDS ORDERED: Ondansetron Hydrochloride 4 MG TAB SL ONE (04:00)
[2024-08-16] MEDS ORDERED: VIBRAMYCIN100 MG PO (04:04)
== END 2024-08-16 04:06 | disposition home or self-care (01) ==
LOC: ED 03:47
DX: K02.9 Dental caries, unspecified (principal); Z88.8 Allergy status to other drugs, medicaments and biological substances; Z91.048 Other nonmedicinal substance allergy status; Z79.899 Other long term (current) drug therapy; Z79.84 Long term (current) use of oral hypoglycemic drugs; Z95.5 Presence of coronary angioplasty implant and graft; Z87.891 Personal history of nicotine dependence

== ENCOUNTER 2024-09-22 21:14 | Emergency (ER) | payer OTHER ==
[~2024-09-22] VITALS: Ht 170.1 cm; Wt 72.6 kg
[2024-09-22] MEDS ORDERED: Bacitracin Zinc 14 GM TUBE T ONE (22:05)
[2024-09-22] MEDS ORDERED: Doxycycline Hyclate 100 MG CAPSULE PO ONE (22:05)
[2024-09-22] MEDS ORDERED: VIBRAMYCIN100 MG PO (22:10)
== END 2024-09-22 22:20 | disposition home or self-care (01) ==
LOC: ED 21:14
DX: S00.462A Insect bite (nonvenomous) of left ear, initial encounter (principal); S91.301A Unspecified open wound, right foot, initial encounter; E11.9 Type 2 diabetes mellitus without complications; Z86.14 Personal history of Methicillin resistant Staphylococcus aureus infection; Z88.8 Allergy status to other drugs, medicaments and biological substances; Z79.899 Other long term (current) drug therapy; Z79.84 Long term (current) use of oral hypoglycemic drugs; Z95.5 Presence of coronary angioplasty implant and graft; Z87.891 Personal history of nicotine dependence; W57.XXXA Bitten or stung by nonvenomous insect and other nonvenomous arthropods, initial encounter; Y93.89 Activity, other specified; Y92.89 Other specified places as the place of occurrence of the external cause; Y99.8 Other external cause status